=== PATIENT | female | born 1995 | race Caucasian/White ===

== ENCOUNTER 2022-04-18 22:05 | Inpatient (IN) | payer OTHER, SELFPAY ==
[2022-04-18] MEDS ORDERED: NA CHLORIDE 0.9% 1,000 ML ONE (22:56)
[2022-04-18] MEDS ORDERED: ONDANSETRON 4 MG/2 ML VIAL ONE (22:56)
[2022-04-18 23:17] LABS: Absolute Lymphocytes (CBC) 0.8 K/uL (0.7-4.9); Hematocrit 49.1 % (36.0-45.0); Lymphocytes % 5.5 % (15.3-44.8); MCV 88.5 fL (80-100); MPV 8.2 fL (7.6-11.3); RBC Red Blood Cell Count 5.56 M/uL (3.86-4.86)
[2022-04-18 23:20] LABS: Protime INR 1.14
[2022-04-18 23:53] LABS: ALT/SGPT 28 U/L (12-78); AST/SGOT 26 U/L (15-37); Albumin 4.9 g/dL (3.4-5.0); Alkaline Phosphatase 106 U/L (45-117); BUN Blood Urea Nitrogen 17 mg/dL (7-18); Bicarbonate 22 mmol/L (21-32); Bilirubin Direct 0.1 mg/dL (0-0.2); Bilirubin Total 0.5 mg/dL (0.2-1.0); Glomerular Filtration Rate 74 ml/min (=/>90); Glucose Level 138 mg/dL (74-106); Potassium 3.3 mmol/L (3.5-5.1); Protein, Total 9.7 g/dL (6.4-8.2); Sodium Level 138 mmol/L (136-145)
[2022-04-18] MEDS ORDERED: MORPHINE 2 MG/ML SYR ONE (23:55)
[2022-04-19] MEDS ORDERED: CLONIDINE 0.2 MG/PATCH TD ONE (00:04)
[2022-04-19 00:13] LABS: Blood Morphology Comment NOT SEEN (NOT SEEN); Platelet Estimate ADEQ
[2022-04-19] MEDS ORDERED: CEFTRIAXONE 1000 MG/VIAL ONE ×2 (01:27→08:41)
--- NOTE | 2022-04-19 01:37 | ER ---
Nurse's Notes [facility] Name: Renetta Kapoor Age: 26 yrs Sex: Female : 1995 Arrival Date: 04/18/2022 Time: 22:14 Bed 2 Private MD: Diagnosis: Vomiting-INTRACTABLE;Adverse effect of other narcotics;Opioid dependence with withdrawal;Elevated white blood cell count;Bandemia;Left sided colitis without complications;Constipation Presentation: 04/18 22:25 Chief complaint: EMS states: She has been trying to come off of Heroin for the last six bm7 days on her own. She has been taking Suboxone from an unknown source. Coronavirus screen: At this time, the client does not indicate any symptoms associated with coronavirus-19. Ebola Screen: No symptoms or risks identified at this time. Initial Sepsis Screen: Does the patient meet any 2 criteria? HR > 90 bpm. Does the patient have a suspected source of infection? No. Patient's initial sepsis screen is negative. Risk Assessment: Do you want to hurt yourself or someone else? Patient reports desire/thoughts of hurting themselves or someone else. Provider notified. Onset of symptoms is unknown. 22:25 Method Of Arrival: EMS: [facility] 7 22:25 Acuity: FADI 3 7 22:29 Care prior to arrival: Medication(s) given: zofran IM. bm7 Triage Assessment: 22:27 General: Appears distressed, uncomfortable, ill, slender, Behavior is restless. Pain: 7 Complains of pain in abdomen. EENT: No deficits noted. No signs and/or symptoms were reported regarding the EENT system. Neuro: No deficits noted. Cardiovascular: No deficits noted. Respiratory: No deficits noted. GI: Reports cramping, diarrhea, nausea, vomiting. : No deficits noted. No signs and/or symptoms were reported regarding the genitourinary system. Derm: No deficits noted. No signs and/or symptoms reported regarding the dermatologic system. Musculoskeletal: No deficits noted. No signs and/or symptoms reported regarding the musculoskeletal system. COMPLIANCE ATTORNEY: 22:27 LMP 03/26/2022 bm7 Historical: - Allergies: 22:27 No Known Allergies; bm7 - Home Meds: 22:27 None [Active]; bm7 - Immunization history:: Adult Immunizations up to date. - Social history:: Smoking status: Patient reports the use of cigarette tobacco products, denies chronic smoking, but will smoke occasionally, Patient uses IV drugs, heroin. - Family history:: not pertinent. Screenin:00 Abuse screen: Denies threats or abuse. Nutritional screening: No deficits noted. jb4 Tuberculosis screening: No symptoms or risk factors identified. Fall Risk None identified. Assessment: 23:00 General: Appears in no apparent distress. uncomfortable, Behavior is cooperative, jb4 anxious. Pain: Complains of pain in abdomen Pain does not radiate. Pain currently is 10 out of 10 on a pain scale. Quality of pain is described as crampy. Neuro: Level of Consciousness is awake, alert, obeys commands, Oriented to person, place, time, situation. Cardiovascular: Patient's skin is warm and dry. Respiratory: Airway is patent Respiratory effort is even, unlabored, Respiratory pattern is regular, symmetrical. GI: Abdomen is flat, non-distended, Pt is actively vomiting bile, Reports nausea, vomiting. Derm: Skin is intact, Skin is pink, warm \T\ dry. 04/19 00:00 Reassessment: Patient appears in no apparent distress at this time. Patient and/or jb4 family updated on plan of care and expected duration. Pain level reassessed. Patient is alert, oriented x 3, equal unlabored respirations, skin warm/dry/pink. 01:00 Reassessment: Patient appears in no apparent distress at this time. Patient and/or jb4 family updated on plan of care and expected duration. Pain level reassessed. Patient is alert, oriented x 3, equal unlabored respirations, skin warm/dry/pink. 02:00 Reassessment: Patient appears in no apparent distress at this time. Patient and/or jb4 family updated on plan of care and expected duration. Pain level reassessed. Patient is alert, oriented x 3, equal unlabored respirations, skin warm/dry/pink. Vital Signs: 04/18 22:25 BP 132 / 80; Pulse 104; Resp 20; Temp 98.0(TE); Pulse Ox 100% on R/A; Weight 45.36 kg bm7 (R); Height 5 ft. 0 in. (152.40 cm); Pain 10/10; 04/19 00:00 BP 144 / 78; Pulse 59; Resp 20; Pulse Ox 99% on R/A; jb4 01:30 BP 156 / 90; Pulse 77; Resp 20; Pulse Ox 97% ; jb4 04/18 22:25 Body Mass Index 19.53 (45.36 kg, 152.40 cm) bm7 ED Course: 04/18 22:14 Patient arrived in ED. bm7 22:16 Irineo Blanco MD is Attending Physician. edwina 22:27 Triage completed. bm7 22:27 Arm band placed on right wrist. bm7 22:45 Lauri Martinez, RN is Primary Nurse. jb4 23:00 Patient has correct armband on for positive identification. Placed in gown. Bed in low jb4 position. Call light in reach. Side rails up X 1. Client placed on continuous cardiac and pulse oximetry monitoring. NIBP monitoring applied. monitor car operator on. 23:00 Initial lab(s) drawn, by me, sent to lab. Inserted saline lock: 18 gauge in right jb4 antecubital area, using aseptic technique. Blood collected. 23:49 Chest Single View XRAY In Process Unspecified. EDMS 08 00:35 IV discontinued, intact, bleeding controlled, No redness/swelling at site. Pressure jb4 dressing applied. 00:35 Inserted saline lock: 22 gauge in right antecubital area, using aseptic technique. jb4 01:06 CT Abd/Pelvis - IV Contrast Only In Process Unspecified. EDMS 01:34 Humberto Rosales MD is Hospitalizing Provider. edwina 02:52 No provider procedures requiring assistance completed. jb4 07:07 Primary Nurse role handed off by Lauri Martinez, RN bp 07:07 Fausto Sampson, NIKIA is Primary Nurse. bp Administered Medications: 04/18 22:56 Drug: NS 0.9% 1000 ml Route: IV; Rate: 1000 bolus; Site: right antecubital; 04/19 02:56 Follow up: Response: No adverse reaction; IV Status: Completed infusion; IV Intake: jb4 1000ml 04/18 22:56 Drug: Zofran (Ondansetron) 4 mg Route: IVP; Site: right antecubital; 04/19 01:43 Follow up: Response: No adverse reaction jb4 04/18 23:30 Drug: Zofran (Ondansetron) 4 mg Route: IVP; Site: right antecubital; jb4 04/19 01:43 Follow up: Response: No adverse reaction jb4 04/18 23:50 Drug: morphine 2 mg Route: IVP; Infused Over: 4 mins; Site: right antecubital; jb4 04/19 01:43 Follow up: Response: No adverse reaction; Marked relief of symptoms jb4 01:16 Drug: cloNIDine Patch 0.2 mg/24 hr 1 patches {Note: applied to left upper arm.} Route: jb4 Transdermal; Site: affected area; 01:29 Drug: Rocephin (cefTRIAXone) 1 grams Route: IV; Rate: per protocol; Site: right jb4 antecubital; 01:32 Follow up: IV Status: Completed infusion jb4 01:45 Follow up: Response: No adverse reaction jb4 01:42 Drug: Phenergan (promethazine) 12.5 mg Route: IVP; Site: right antecubital; jb4 02:54 Follow up: Response: No adverse reaction; Marked relief of symptoms jb4 02:26 Drug: Flagyl (metroNIDAZOLE) 500 mg Volume: 100 ml; Route: IVPB; Rate: 200 ml/hr; jb4 Infused Over: 30 mins; Site: right antecubital; 02:56 Follow up: Response: No adverse reaction; IV Status: Completed infusion; IV Intake: jb4 100ml 03:10 Drug: Lactated Ringers Solution 1000 ml Route: IV; Rate: 125 ml/hr; Site: right jb4 antecubital; 03:11 Follow up: Response: No adverse reaction; IV Status: Infusion continued upon admission jb4 Medication: 02:52 VIS not applicable for this client. jb4 Intake: 02:56 IV: 100ml; Total: 100ml. jb4 02:56 IV: 1000ml; Total: 1100ml. jb4 Outcome: 01:27 Discharge ordered by . ewdina 01:36 Decision to Hospitalize by Provider. edwina 02:52 Admitted to ER Hold. Please see [facility] for further documentation. jb4 02:52 Condition: stable 02:52 Discharge instructions given to patient, Instructed on the need for admit, Demonstrated understanding of instructions. 17:00 Patient left the ED. bp Signatures: Dispatcher [employer] Sophie Farr RN RN kl Anderson, Corey, MD MD cha Bryson, James, RN RN jb4 Fausto Sampson RN RN bp Annabel Campuzano RN RN bm7 Corrections: (The following items were deleted from the chart) 04/18 22:28 22:27 PMHx: None; bm7 bm7
--- NOTE | 2022-04-19 01:37 | EDPHYS ---
Physician Documentation [facility] Name: Renetta Kapoor Age: 26 yrs Sex: Female : 1995 Arrival Date: 04/18/2022 Time: 22:14 Bed 2 Private MD: ED Physician Irineo Blanco HPI: 04/18 23:45 This 26 yrs old Female presents to ER via EMS with complaints of heroin edwina withdrawal. 23:45 The patient presents with abdominal pain in the upper abdomen, in the lower abdomen. edwina Onset: The symptoms/episode began/occurred just prior to arrival. The patient presents to the emergency department with nausea, vomiting, abdominal pain. Onset: The symptoms/episode began/occurred today. Possible causes: heroin withdrawal. The symptoms are aggravated by nothing. The symptoms are alleviated by nothing. took suboxone. The symptoms do not radiate. Associated signs and symptoms: The patient has no apparent associated signs or symptoms. [employer]: 22:27 LMP 03/26/2022 [facility] Historical: - Allergies: 22:27 No Known Allergies; 7 - Home Meds: 22:27 None [Active]; 7 - Immunization history:: Adult Immunizations up to date. - Social history:: Smoking status: Patient reports the use of cigarette tobacco products, denies chronic smoking, but will smoke occasionally, Patient uses IV drugs, heroin. - Family history:: not pertinent. ROS: 23:45 Constitutional: Negative for fever, chills, and weight loss, Eyes: Negative for injury, edwina pain, redness, and discharge, ENT: Negative for injury, pain, and discharge, Neck: Negative for injury, pain, and swelling, Cardiovascular: Negative for chest pain, palpitations, and edema, Respiratory: Negative for shortness of breath, cough, wheezing, and pleuritic chest pain, Back: Negative for injury and pain, : Negative for injury, bleeding, discharge, and swelling, MS/Extremity: Negative for injury and deformity, Skin: Negative for injury, rash, and discoloration, Neuro: Negative for headache, weakness, numbness, tingling, and seizure, Psych: Negative for depression, anxiety, suicide ideation, homicidal ideation, and hallucinations, Allergy/Immunology: Negative for hives, rash, and allergies, Endocrine: Negative for neck swelling, polydipsia, polyuria, polyphagia, and marked weight changes, Hematologic/Lymphatic: Negative for swollen nodes, abnormal bleeding, and unusual bruising. 23:45 Abdomen/GI: Positive for abdominal pain, nausea and vomiting, of the right upper quadrant, left upper quadrant, right lower quadrant and left lower quadrant. Exam: 23:45 Constitutional: This is a well developed, well nourished patient who is awake, alert, edwina and in no acute distress. Head/Face: Normocephalic, atraumatic. Eyes: Pupils equal round and reactive to light, extra-ocular motions intact. Lids and lashes normal. Conjunctiva and sclera are non-icteric and not injected. Cornea within normal limits. Periorbital areas with no swelling, redness, or edema. ENT: Nares patent. No nasal discharge, no septal abnormalities noted. Tympanic membranes are normal and external auditory canals are clear. Oropharynx with no redness, swelling, or masses, exudates, or evidence of obstruction, uvula midline. Mucous membranes moist. Neck: Trachea midline, no thyromegaly or masses palpated, and no cervical lymphadenopathy. Supple, full range of motion without nuchal rigidity, or vertebral point tenderness. No Meningismus. Chest/axilla: Normal chest wall appearance and motion. Nontender with no deformity. No lesions are appreciated. Cardiovascular: Regular rate and rhythm with a normal S1 and S2. No gallops, murmurs, or rubs. Normal PMI, no JVD. No pulse deficits. Respiratory: Lungs have equal breath sounds bilaterally, clear to auscultation and percussion. No rales, rhonchi or wheezes noted. No increased work of breathing, no retractions or nasal flaring. Back: No spinal tenderness. No costovertebral tenderness. Full range of motion. Skin: Warm, dry with normal turgor. Normal color with no rashes, no lesions, and no evidence of cellulitis. MS/ Extremity: Pulses equal, no cyanosis. Neurovascular intact. Full, normal range of motion. Neuro: Awake and alert, GCS 15, oriented to person, place, time, and situation. Cranial nerves II-XII grossly intact. Motor strength 5/5 in all extremities. Sensory grossly intact. Cerebellar exam normal. Normal gait. 23:45 Abdomen/GI: Inspection: abdomen appears normal, Bowel sounds: normal, Palpation: mild abdominal tenderness, in all quadrants, Liver: no appreciated palpable abnormalities, Hernia: not appreciated. 23:51 ECG was reviewed by the Attending Physician. [facility] Vital Signs: 22:25 BP 132 / 80; Pulse 104; Resp 20; Temp 98.0(TE); Pulse Ox 100% on R/A; Weight 45.36 kg bm7 (R); Height 5 ft. 0 in. (152.40 cm); Pain 10/10; 04/19 00:00 BP 144 / 78; Pulse 59; Resp 20; Pulse Ox 99% on R/A; jb4 01:30 BP 156 / 90; Pulse 77; Resp 20; Pulse Ox 97% ; jb4 04/18 22:25 Body Mass Index 19.53 (45.36 kg, 152.40 cm) bm7 MDM: 04/18 22:16 Patient medically screened. [facility] 23:52 Differential Diagnosis sepsis. Differential diagnosis: Cholelithiasis, diverticulitis, edwina non-specific abd pain. Data reviewed: vital signs, nurses notes, lab test result(s), EKG, radiologic studies, plain films. Data interpreted: drug room clerk: rate is 104 beats/min, rhythm is regular. Test interpretation: by ED physician or midlevel provider: ECG, plain radiologic studies. Counseling: I had a detailed discussion with the patient and/or guardian regarding: the historical points, exam findings, and any diagnostic results supporting the discharge/admit diagnosis, lab results, radiology results. 04/18 22:19 Order name: Acetaminophen; Complete Time: 01: [facility] 04/18 22:19 Order name: Basic Metabolic Panel; Complete Time: 01: [facility] 04/18 22:19 Order name: CBC with Diff; Complete Time: 01: [facility] 04/18 22:19 Order name: ETOH Level; Complete Time: 01: [facility] 04/18 22:19 Order name: Hepatic Function; Complete Time: 01: [facility] 04/18 22:19 Order name: PT-INR; Complete Time: 23: [facility] 04/18 22:19 Order name: Ptt, Activated; Complete Time: 23:31 [facility] 04/18 22:19 Order name: Salicylate; Complete Time: 01: [facility] 04/18 22:19 Order name: Urine Drug Screen; Complete Time: 03:53 [facility] 04/18 23:19 Order name: Manual Differential; Complete Time: 01:02 EDMS 04/19 01:32 Order name: Urine Culture [facility] 04/19 01:38 Order name: Test, Serum; Complete Time: 02:37 [facility] 04/19 01:39 Order name: SARS RAPID; Complete Time: 03:53 [facility] 04/19 02:10 Order name: Urine Dipstick-Ancillary; Complete Time: 02:37 [facility] 04/18 22:24 Order name: Chest Single View XRAY [facility] 04/18 23:41 Order name: CT Abd/Pelvis - IV Contrast Only [facility] 04/19 10:37 Order name: CBC with Automated Diff [facility] 04/19 10:49 Order name: Basic Metabolic Panel [facility] 04/19 11:43 Order name: CBC Smear Scan [facility] 04/19 15:37 Order name: CBC with Automated Diff [facility] 04/19 16:06 Order name: Manual Differential [facility] 04/18 22:19 Order name: EKG; Complete Time: 22:20 [facility] 04/18 22:19 Order name: EKG - Nurse/Tech; Complete Time: 23:07 [facility] 04/18 22:19 Order name: IV Saline Lock; Complete Time: 23:35 [facility] 04/18 22:19 Order name: Labs collected and sent; Complete Time: 23:35 [facility] 04/18 22:19 Order name: Suicide Screening ([place]); Complete Time: 23:35 [facility] 04/18 22:19 Order name: Urine Dipstick-Ancillary (obtain specimen); Complete Time: 02:21 [facility] 04/18 22:24 Order name: Urine Test (obtain specimen); Complete Time: 02:21 [facility] 04/19 01:38 Order name: Misc. Order: GET UA PLEASE; Complete Time: 02:21 [facility] EC:51 Rate is 72 beats/min. Rhythm is regular. QRS [place] is Normal. [place] interval is normal. QRS edwina interval is normal. QT interval is normal. No Q waves. T waves are Normal. No ST changes noted. Clinical impression: NSR w/ Non-specific ST/T Changes and No evidence of ischemia. Interpreted by me. Reviewed by me. Administered Medications: 22:56 Drug: NS 0.9% 1000 ml Route: IV; Rate: 1000 bolus; Site: right antecubital; 04/19 02:56 Follow up: Response: No adverse reaction; IV Status: Completed infusion; IV Intake: jb4 1000ml 04/18 22:56 Drug: Zofran (Ondansetron) 4 mg Route: IVP; Site: right antecubital; 04/19 01:43 Follow up: Response: No adverse reaction [facility] 04/18 23:30 Drug: Zofran (Ondansetron) 4 mg Route: IVP; Site: right antecubital; [facility] 04/19 01:43 Follow up: Response: No adverse reaction [facility] 04/18 23:50 Drug: morphine 2 mg Route: IVP; Infused Over: 4 mins; Site: right antecubital; [facility] 04/19 01:43 Follow up: Response: No adverse reaction; Marked relief of symptoms 4 01:16 Drug: cloNIDine Patch 0.2 mg/24 hr 1 patches {Note: applied to left upper arm.} Route: jb4 Transdermal; Site: affected area; 01:29 Drug: Rocephin (cefTRIAXone) 1 grams Route: IV; Rate: per protocol; Site: right [facility] antecubital; 01:32 Follow up: IV Status: Completed infusion jb4 01:45 Follow up: Response: No adverse reaction jb4 01:42 Drug: Phenergan (promethazine) 12.5 mg Route: IVP; Site: right antecubital; 4 02:54 Follow up: Response: No adverse reaction; Marked relief of symptoms jb4 02:26 Drug: Flagyl (metroNIDAZOLE) 500 mg Volume: 100 ml; Route: IVPB; Rate: 200 ml/hr; jb4 Infused Over: 30 mins; Site: right antecubital; 02:56 Follow up: Response: No adverse reaction; IV Status: Completed infusion; IV Intake: jb4 100ml 03:10 Drug: Lactated Ringers Solution 1000 ml Route: IV; Rate: 125 ml/hr; Site: right 4 antecubital; 03:11 Follow up: Response: No adverse reaction; IV Status: Infusion continued upon admission jb4 Disposition Summary: 04/19/22 01:36 Hospitalization Ordered Hospitalization Status: Inpatient Admission edwina Provider: Humberto Rosales cha Condition: Fair(04/19/22 01:36) edwina Problem: new(04/19/22 01:36) edwina Symptoms: have improved(04/19/22 01:36) edwina Bed/Room Type: Standard edwina Location: [facility] ER HOLD(04/19/22 01:44) eb1 Room Assignment: ERHOLD-(04/19/22 01:44) eb1 Diagnosis - Adverse effect of other narcotics(04/19/22 01:36) edwina - Opioid dependence with withdrawal(04/19/22 01:36) edwina - Elevated white blood cell count(04/19/22 01:36) edwina - Bandemia(04/19/22 01:36) edwina - Vomiting - INTRACTABLE(04/19/22 01:44) edwina - Left sided colitis without complications edwina - Constipation edwina Forms: - Medication Reconciliation Form edwina - SBAR form edwina Signatures: Dispatcher [employer] EDMS Sophie Romo RN Irineo Ellis MD MD cha Bryson, James, RN RN jb4 Vero Gil RN RN eb1 Annabel Campuzano, NIKIA RN bm7 Love Garces, PA PA sb3 Corrections: (The following items were deleted from the chart) 04/18 22:28 22:27 PMHx: None; bm7 bm7 04/19 01:28 01:27 Home edwina edwina : 01:27 new edwina edwina : 01:27 have improved edwina edwina : 01:27 Stable edwina edwina : 01:27 Adverse effect of other narcotics edwina edwina : 01:27 Opioid dependence with withdrawal edwina edwina : 01:27 Vomiting edwina edwina : 01:27 Dental caries, unspecified edwina edwina : 01:27 Dental alveolar anomalies edwina edwina : 01:27 Elevated white blood cell count edwina edwina : 01:27 Bandemia edwina edwina : 01:27 Hypokalemia edwina edwina : 01:27 Abdominal pain, Generalized edwina edwina :44 01:36 Telemetry/MedSurg (Inpatient) edwina eb1 01:44 01:36 edwina eb1 01:44 01:36 Vomiting edwina edwina
[2022-04-19] MEDS ORDERED: PROMETHAZINE INJ 25 MG/ML AMP ONE ×2 (01:43→13:57)
[2022-04-19] MEDS ORDERED: Ringers Lactate 1,000 ML IV ONE (01:51)
[2022-04-19] MEDS ORDERED: METRONIDAZOLE 500mg IVPB 500 MG/100 ML BAG IV ONE ×2 (01:51→08:42)
[2022-04-19 02:10] LABS: Urine Blood Trace-intact (Negative); Urine Glucose Negative (Negative); Urine Protein Negative (Negative); Urine Specific Gravity 1.015 (1.005-1.030); Urine pH 7.5 (5.0-7.0)
[2022-04-19 02:51] LABS: Barbiturates NEGATIVE (NEGATIVE); Benzodiazepines POSITIVE (NEGATIVE); Cocaine NEGATIVE (NEGATIVE); METHAMPHETAM NEGATIVE (NEGATIVE); Methadone NEGATIVE (NEGATIVE); Opiates POSITIVE (NEGATIVE); Phencyclidine NEGATIVE (NEGATIVE); THC Cannibis POSITIVE (NEGATIVE)
--- NOTE | 2022-04-19 02:53 | P.HP ---
Certification for Inpatient Patient admitted to: Inpatient With expected LOS: <2 Midnights Patient will require the following post-hospital care: None Practitioner: I am a practitioner with admitting privileges, knowledge of patient current condition, hospital course, and medical plan of care. Services: Services provided to patient in accordance with Admission requirements found in Title 42 Section 412.3 of the Code of Federal Regulations Patient History Date of Service: 04/19/22 Reason for admission: Intractable Vomiting History of Present Illness: Patient is a 26-year-old female who presented to the ED via EMS with intractable vomiting. Patient reports that she is an IV heroin user but last used 6 days ago. She has been taking suboxone from an unknown source. Given IM zofran en route. She was audibly retching upon arrival. Patient was given 2 additional doses of zofran, phenegran, and clonidine patch in ED but continued to vomit. Her labs are significant for potassium 3.3, WBC 14.3, segs 88, bands 2. CT abdomen pelvis showed proctocolitis of infectious or inflammatory etiology. She was started on Rocephin and Flagyl in the ED and given 2 L of fluid. She is alert and oriented x 4 during my assessment and answering questions appropriately. ED provider wishes admit patient for further evaluation and treatment of intractable vomiting. Allergies amoxicillin [Amoxicillin] Allergy (Verified 05/26/13 17:59) Itching/Hives/Rash Home medications list reviewed: Yes Home Medications: NK [No Home Meds] 04/19/22 - Past Medical/Surgical History Diabetic: No -: depression Past Surgical History: Patient denies surgical history Psychosocial/ Personal History: Patient lives in [facility]. - Family History Family History: Reviewed- Non-Contributory - Social History Smoking Status: Current some day smoker Alcohol use: No CD- Drugs: Yes Caffeine use: Yes Place of Residence: Home Review of Systems Gastrointestinal: Nausea, Vomiting, Abdominal Pain, Diarrhea Physical Examination - Physical Exam General: Alert, In no apparent distress HEENT: Atraumatic, PERRLA, EOMI, Sclerae nonicteric Neck: Supple, 2+ carotid pulse no bruit, No LAD, Without JVD or thyroid abnormality Respiratory: Clear to auscultation bilaterally, Normal air movement Cardiovascular: Regular rate/rhythm, Normal S1 S2 Gastrointestinal: Normal bowel sounds, No tenderness Musculoskeletal: No tenderness Integumentary: No rashes Neurological: Normal speech, Normal strength at 5/5 x4 extr, Normal tone, Normal affect - Studies Laboratory Data (last 24 hrs) 04/18/22 22:50: PT 12.6 H, INR 1.14, APTT 28.6 04/18/22 22:50: WBC 14.30 H, Hgb 16.6 H, Hct 49.1 H, Plt Count 337 04/18/22 22:50: Sodium 138, Potassium 3.3 L, BUN 17, Creatinine 1.05, Glucose 138 H, Total Bilirubin 0.5, AST 26, ALT 28, Alkaline Phosphatase 106 Assessment and Plan - Problems (Diagnosis) (1) Intractable vomiting Current Visit: Yes Status: Acute (2) Heroin withdrawal Current Visit: Yes Status: Acute (3) Proctocolitis Current Visit: Yes Status: Acute (4) Leukocytosis Current Visit: Yes Status: Acute Qualifiers: Leukocytosis type: bandemia Qualified Code(s): D72.825 - Bandemia (5) Hypokalemia Current Visit: Yes Status: Acute - Plan -Continue supportive measures with IV fluids and antiemetics -IV antibiotics for proctocolitis and leukocytosis -senior manager creative services consult in place. Patient says she would consider going to rehab. -Monitor and replete electrolytes per protocol -Reconcile and continue home medications -Lovenox for VTE ppx -Full code Discharge Plan: Home Plan to discharge in: 48 Hours - Advance Directives Does patient have a Living Will: No Does patient have a Durable POA for Healthcare: No - Code Status/Comfort Care Code Status Assessed: Yes (Full) Critical Care: No Time Spent Managing Pts Care (In Minutes): 50
[2022-04-19 03:15] LABS: SARS-CoV-2 Antigen Rapid Res Negative (Negative)
[2022-04-19] MEDS ORDERED: ACETAMINOPHEN 500 MG TAB PO PRN (03:18)
[2022-04-19 03:38] VITALS: BMI 19.5
[2022-04-19] MEDS: Ringers Lactate 1,000 ML IV SCH ×2 (03:44→12:00)
[2022-04-19] MEDS ORDERED: PROMETHAZINE INJ 25 MG/ML AMP IV PRN (06:00)
[2022-04-19] MEDS ORDERED: POTASSIUM 25 MEQ EFFERV TAB PO ONE (07:00)
[2022-04-19] MEDS ORDERED: ENOXAPARIN 40 MG/0.4 ML SQ ONE (08:42)
[2022-04-19] MEDS ORDERED: POTASSIUM 25 MEQ EFFERV TAB ONE (08:42)
[2022-04-19] MEDS ORDERED: ENOXAPARIN 40 MG/0.4 ML SQ SCH (09:00)
[2022-04-19] MEDS ORDERED: METRONIDAZOLE 500mg IVPB 500 MG/100 ML BAG IV SCH (09:00)
[2022-04-19] MEDS ORDERED: CEFTRIAXONE 1,000 MG in NA CHLORIDE 0.9% 50 ML IVPB SCH (09:00)
[2022-04-19] MEDS: clonazePAM 0.5 MG TAB PO SCH ×2 (09:00→14:00)
[2022-04-19] MEDS ORDERED: clonazePAM 0.5 MG TAB ONE ×2 (09:34→13:58)
[2022-04-19 10:34] LABS: Absolute Lymphocytes (CBC) 0.8 K/uL (0.7-4.9); Hematocrit 42.3 % (36.0-45.0); Lymphocytes % 4.1 % (15.3-44.8); MCV 88.2 fL (80-100); MPV 7.8 fL (7.6-11.3)
[2022-04-19 10:48] LABS: Potassium 3.6 mmol/L (3.5-5.1)
[2022-04-19 11:42] LABS: Blood Morphology Comment NOT SEEN (NOT SEEN); White Blood Cell Scan OK (OK)
[2022-04-19 11:43] LABS: Platelet Estimate ADEQ
[2022-04-19] MEDS ORDERED: NA CHLORIDE 0.9% 1,000 ML IV ONE (11:57)
--- NOTE | 2022-04-19 11:59 | P.PN ---
Subjective Date of Service: 04/19/22 Subjective: No new changes, No C/O voiced, Improving (Patient is feeling better. We will repeat labs later today and if she is doing well plan to discharge her home.) Review of Systems 10-point ROS is otherwise unremarkable Physical Examination - Vital Signs Temperature: 98.4 F Blood Pressure: 123/81 Pulse: 86 Respirations: 20 Pulse Ox (%): 98 - Physical Exam General: Alert, In no apparent distress HEENT: Atraumatic, PERRLA, EOMI Neck: Supple, JVD not distended Respiratory: Clear to auscultation bilaterally, Normal air movement Cardiovascular: Regular rate/rhythm, Normal S1 S2 Gastrointestinal: Normal bowel sounds, No tenderness Musculoskeletal: No tenderness Integumentary: No rashes Neurological: Normal speech, Normal tone, Normal affect Lymphatics: No axilla or inguinal lymphadenopathy - Studies Laboratory Data (last 24 hrs) 04/18/22 22:50: PT 12.6 H, INR 1.14, APTT 28.6 04/18/22 22:50: WBC 14.30 H, Hgb 16.6 H, Hct 49.1 H, Plt Count 337 04/18/22 22:50: Sodium 138, Potassium 3.3 L, BUN 17, Creatinine 1.05, Glucose 138 H, Total Bilirubin 0.5, AST 26, ALT 28, Alkaline Phosphatase 106 Medications List Reviewed: Yes Assessment & Plan - Problems (Diagnosis) (1) Withdrawal from recreational drug Current Visit: Yes Status: Acute (2) Intractable vomiting Current Visit: Yes Status: Acute (3) Leukocytosis Current Visit: Yes Status: Acute Qualifiers: Leukocytosis type: bandemia Qualified Code(s): D72.825 - Bandemia (4) Proctocolitis Current Visit: Yes Status: Acute - Plan -IV antibiotics -IV fluids -Repeat labs -Diet as tolerated -Anxiolytics -Rehab information Discharge Plan: Home Plan to discharge in: 24 Hours - Advance Directives Does patient have a Living Will: No Does patient have a Durable POA for Healthcare: No - Code Status/Comfort Care Code Status Assessed: Yes Code Status: Full Code Critical Care: No Time Spent Managing PTS Care (In Minutes): 35
--- NOTE | 2022-04-19 13:12 | RAD REPORT ---
EXAM DESCRIPTION: RAD - Chest Single View - 04/18/2022 11:48 pm CLINICAL HISTORY: COUGH COMPARISON: None. FINDINGS: Single frontal radiograph view of the chest. Cardiomediastinal silhouette: Normal size and contour. Lungs: No consolidation, pneumothorax, or pleural effusion. Bones: No acute osseous abnormality. Leads overlie the chest. Upper abdomen: No abnormality identified. IMPRESSION: 1. No acute pulmonary process identified. Electronically signed by: Demetrius Castro 04/18/2022 11:55 PM CDT Due to temporary technical issues with the PACS/Fluency reporting system, reports are being signed by the in house radiologists without review as a courtesy to insure prompt reporting. The interpreting radiologist is fully responsible for the content of the report.
[2022-04-19] MEDS ORDERED: NA CHLORIDE 0.9% 1,000 ML ONE (13:37)
--- NOTE | 2022-04-19 14:31 | RAD REPORT ---
EXAM DESCRIPTION: CT - Abdomen Pelvis W Contrast - 04/19/2022 1:29 am CLINICAL HISTORY: Abdominal pain, acute, nonlocalized COMPARISON: None Available. TECHNIQUE: CT of the abdomen and pelvis performed following IV administration of iodinated contras t. This exam was performed according to our departmental dose-optimization program, which includes au tomated exposure control, adjustment of the mA and/or kV according to patient size and/or use of iter ative reconstruction technique. FINDINGS: Lung Bases: The visualized lung bases are clear. Bones: No destructive bone lesions identified. Abdomen: Liver: The liver has normal size and density. No intrahepatic biliary dilatation. Gallbladder: No calcified gallstones. Spleen, Pancreas, and Adrenal Glands: The spleen, pancreas, and adrenal glands are unremarkable. Kidneys: No hydronephrosis or obstructing calculus. Vasculature: The aorta and IVC have normal caliber and position. The portal vein is patent. The pro ximal visceral and renal arteries are patent. Stomach: The stomach and duodenum have normal course. Other: No free intraperitoneal air. Small amount free fluid. Pelvis: Bladder: Urinary bladder is unremarkable. Bowel: No dilated loops of large or small bowel. Low thickening and adjacent inflammatory change of the rectosigmoid colon. There is also mild wall thickening of the descending and transverse colon. M oderate amount of stool. Appendix: Not well individually identified. Pelvis: Uterus is not enlarged. IMPRESSION: 1. Findings compatible with proctocolitis. This may be of infectious or inflammatory e tiology. 2. Small amount of free fluid. Electronically signed by: Demetrius Castro 04/19/2022 1:19 AM CDT Due to temporary technical issues with the PACS/Fluency reporting system, reports are being signed by the in house radiologists without review as a courtesy to insure prompt reporting. The interpreting radiologist is fully responsible for the content of the report.
--- NOTE | 2022-04-19 15:10 | EKG ---
Test Date: 2022-04-18 Test Time: 22:57:17 Global Risk Management Director: ESTEBAN MEASUREMENT RESULTS: Intervals: Rate: 72 PA: 174 QRSD: 90 QT: 438 QTc: 479 [place]: P: 9 PA: 174 QRS: 73 T: 65 INTERPRETIVE STATEMENTS: Sinus rhythm with marked sinus arrhythmia Otherwise normal ECG No previous ECG available for comparison Electronically Signed On 04-19-22 15:09:18 CDT by Hank Pardo
[2022-04-19 15:34] LABS: Absolute Lymphocytes (CBC) 0.8 K/uL (0.7-4.9); Hematocrit 42.8 % (36.0-45.0); MCV 87.2 fL (80-100); MPV 7.3 fL (7.6-11.3)
[2022-04-19 16:05] LABS: Toxic Granulation 1+
[2022-04-19 16:06] LABS: Blood Morphology Comment NOT SEEN (NOT SEEN); Platelet Estimate ADEQ
[2022-04-19 18:06] VITALS: TEMP 98
[2022-04-19 18:21] VITALS: BP 156/90; O2SAT 97
== END 2022-04-19 17:01 | disposition home or self-care (01) | DRG 897 ==
LOC: ER 22:05 → ERHOLD 04-19 03:04
PROVIDERS: ADMIT Hospitalist; ATTEND Hospitalist
DX: F11.23 Opioid dependence with withdrawal (principal); D72.825 Bandemia; E87.6 Hypokalemia; K59.00 Constipation, unspecified; K52.9 Noninfective gastroenteritis and colitis, unspecified; F17.210 Nicotine dependence, cigarettes, uncomplicated; R11.2 Nausea with vomiting, unspecified; Z88.1 Allergy status to other antibiotic agents; Z20.822 Contact with and (suspected) exposure to COVID-19
CPT/HCPCS: 36415; 71045; 74177; 80048; 80076; 80307; 80320; 80329; 81003; 84703; 85025; 85610; 85730; 87086; 87088; 87811; 93005; 96361; 96365; 96375; 99285; J1650; J2270; J2405; J2550; J7030; J7120; Q9967

== ENCOUNTER 2022-07-19 23:27 | Emergency (ER) | payer SELFPAY ==
[2022-07-19] MEDS ORDERED: FAMOTIDINE 20 MG/2 ML VIAL IV ONE (23:41)
[2022-07-19] MEDS ORDERED: ONDANSETRON 4 MG/2 ML VIAL ONE (23:41)
[2022-07-19] MEDS ORDERED: NA CHLORIDE 0.9% 1,000 ML ONE (23:41)
[2022-07-20 00:05] LABS: Urine Blood 2+ (Negative); Urine Glucose Negative (Negative); Urine Protein 2+ (Negative); Urine Specific Gravity >=1.030 (1.005-1.030)
[2022-07-20 00:28] LABS: Urine Specific Gravity/Preg >1.030 (1.005-1.030)
[2022-07-20 00:30] LABS: Absolute Lymphocytes (CBC) 0.8 K/uL (0.7-4.9); MPV 7.9 fL (7.6-11.3); RBC Red Blood Cell Count 5.28 M/uL (3.86-4.86)
[2022-07-20 00:37] LABS: Specific Gravity > 1.030 (1.005-1.030); Urine Bacteria <20 /HPF (<20); Urine Bilirubin NEGATIVE (Negative); Urine Blood 2+ (Negative); Urine Clarity Turbid (Clear); Urine Color Yellow (Yellow); Urine Glucose NEGATIVE (Negative); Urine Mucus 3+ /HPF (None Seen); Urine Protein 1+ (Negative); Urine Urobilinogen 1+ (Normal)
[2022-07-20 00:45] LABS: Albumin 4.9 g/dL (3.4-5.0); Potassium 3.7 mmol/L (3.5-5.1)
[2022-07-20 01:22] LABS: SARS-COV-2 RT PCR NEGATIVE (NEGATIVE)
[2022-07-20] MEDS ORDERED: NA CHLORIDE 0.9% 1,000 ML ONE (01:35)
[2022-07-20] MEDS ORDERED: PROMETHAZINE INJ 25 MG/ML AMP ONE (02:20)
--- NOTE | 2022-07-20 03:38 | EDPHYS ---
Physician Documentation [facility] Name: Renetta Kapoor Age: 27 yrs Sex: Female : 1995 Arrival Date: 07/19/2022 Time: 23:27 Bed 11 Private MD: ED Physician Mark Dickerson HPI: 07/20 00:02 This 27 yrs old Female presents to ER via EMS with complaints of rn Nausea/Vomiting/Diarrhea. 00:02 The patient presents to the emergency department with nausea, vomiting, diarrhea, rn abdominal pain. Onset: The symptoms/episode began/occurred 2 day(s) ago. Possible causes: withdrawal. The symptoms are aggravated by nothing. The symptoms are alleviated by nothing. Associated signs and symptoms: Pertinent positives: abdominal pain, diarrhea, nausea, vomiting, Pertinent negatives: fever, GI bleeding. Severity of symptoms: At their worst the symptoms were moderate in the emergency department the symptoms are unchanged. The patient has experienced similar episodes in the past. The patient has not recently seen a physician. Pt reports at rehab for heroin addiction, feels like she is withdrawing, having abd cramping/vomiting/diarrhea. Has had similar symptoms in past with withdrawal but worse today, and told by rehab needs to take her suboxone or get discharged. [place] worse with Suboxone and couldn't keep it down so came here for evaluation. . Historical: - Allergies: 07/19 23:29 Amoxicillin; tw5 - Home Meds: 23:29 suboxone [Active]; tw5 - PMHx: 23:29 substance abuse; tw5 - PSHx: 23:29 None; tw5 - Immunization history:: Flu vaccine is not up to date. - Social history:: Smoking status: Patient reports the use of cigarette tobacco products, smokes one-half pack cigarettes per day. - Family history:: not pertinent. - Hospitalizations: : No recent hospitalization is reported. ROS: 07/20 00:02 Constitutional: Negative for fever, chills, and weight loss, Eyes: Negative for injury, rn pain, redness, and discharge, Neck: Negative for injury, pain, and swelling, Cardiovascular: Negative for chest pain, palpitations, and edema, Respiratory: Negative for shortness of breath, cough, wheezing, and pleuritic chest pain, Abdomen/GI: + abd pain/nausea/vomiting/diarrhea Back: Negative for injury and pain, MS/Extremity: Negative for injury and deformity, Skin: Negative for injury, rash, and discoloration, Neuro: Negative for headache, weakness, numbness, tingling, and seizure. Exam: 00:02 Constitutional: This is a well developed, well nourished patient who is awake, alert, rn and in no acute distress. Head/Face: Normocephalic, atraumatic. Eyes: Periorbital areas with no swelling, redness, or edema. ENT: dry MM Cardiovascular: Regular rate and rhythm. No pulse deficits. Respiratory: No increased work of breathing, no retractions or nasal flaring. Abdomen/GI: Soft, + mild mid abd tenderness, no mass or distension Skin: Warm, dry MS/ Extremity: Pulses equal, no cyanosis. Neuro: Awake and alert, GCS 15, oriented to person, place, time, and situation. Cranial nerves II-XII grossly intact. Motor strength 5/5 in all extremities. Sensory grossly intact. Cerebellar exam normal. Normal gait. Vital Signs: 07/19 23:28 BP 150 / 88; Pulse 94; Resp 18; Temp 97.1; Pulse Ox 98% on R/A; Weight 40.82 kg; Height tw5 4 ft. 11 in. (149.86 cm); Pain 10; 07/20 01:44 BP 127 / 58; Pulse 95; Resp 18; Pulse Ox 100% on R/A; tw5 07/19 23:28 Body Mass Index 18.18 (40.82 kg, 149.86 cm) tw5 MDM: 07/19 23:27 Patient medically screened. rn 07/20 03:36 Differential diagnosis: Nonspecific abd pain, pancreatitis, appendicitis, rn diverticulitis, viral gastroenteritis, gastroenteritis. Data reviewed: vital signs, nurses notes, lab test result(s), radiologic studies, CT scan, and as a result, I will discharge patient. Counseling: I had a detailed discussion with the patient and/or guardian regarding: the historical points, exam findings, and any diagnostic results supporting the discharge/admit diagnosis, lab results, radiology results, the need for outpatient follow up, to return to the emergency department if symptoms worsen or persist or if there are any questions or concerns that arise at home. Response to treatment: the patient's symptoms have markedly improved after treatment, and as a result, I will discharge patient. Special discussion: Based on the patient's Hx, exam, and Dx evaluation, there is no indication for emergent surgery or inpatient Tx. It is understood by the patient/guardian that if the Sx's persist or worsen they need to return immediately for re-evaluation. I discussed with the patient/guardian in detail that at this point there is no indication for admission to the hospital. It is understood, however, that if the symptoms persist or worsen the patient needs to return immediately for re-evaluation. 07/19 23:28 Order name: CBC with Diff; Complete Time: : rn 07/19 23: Order name: CMP; Complete Time: rn 07/19 23: Order name: Lipase; Complete Time: rn 07/19 23: Order name: COVID-19/FLU A+B; Complete Time: rn 07/20 00:04 Order name: UA; Complete Time: tw 07/20 00:06 Order name: Urine Dipstick-Ancillary; Complete Time: EDNM 07/20 00:16 Order name: Urine --Ancillary (enter results); Complete Time: 07/20 01:12 Order name: Abdomen EDNM 07/19 23:28 Order name: IV Saline Lock; Complete Time: 23:57 rn 07/19 23:28 Order name: Labs collected and sent; Complete Time: 23:57 rn 07/19 23:28 Order name: Urine Dipstick-Ancillary (obtain specimen); Complete Time: 23:57 rn 07/19 23:28 Order name: Urine Test (obtain specimen); Complete Time: 23:57 rn Administered Medications: 00:03 Drug: NS 0.9% 1000 ml Route: IV; Rate: 1 bolus; Site: left antecubital; tw5 03:48 Follow up: Response: No adverse reaction; IV Status: Completed infusion; IV Intake: tw5 500ml 00:03 Drug: Pepcid (famotidine) 20 mg Route: IVP; Site: left antecubital; tw5 03:35 Follow up: Response: No adverse reaction tw5 00:03 Drug: Zofran (Ondansetron) 4 mg Route: IVP; Site: left antecubital; tw5 03:35 Follow up: Response: No adverse reaction; Nausea is decreased 01:44 Drug: NS 0.9% 1000 ml Route: IV; Rate: 1000 ml; Site: left antecubital; 03:35 Follow up: Response: No adverse reaction; IV Status: Completed infusion; IV Intake: 1000ml 02:37 Drug: Phenergan (promethazine) 12.5 mg Route: IVP; Site: right hand; 03:34 Follow up: Response: No adverse reaction; Nausea is decreased Disposition Summary: 07/20/22 03:38 Discharge Ordered Location: Home rn Problem: new rn Symptoms: have improved rn Condition: Stable rn Diagnosis - Opioid dependence with withdrawal rn - Vomiting, unspecified rn - Diarrhea, unspecified rn Followup: rn - With: Private Physician - When: As needed - Reason: Recheck today's complaints, Re-evaluation by your physician Discharge Instructions: - Discharge Summary Sheet rn - Opioid Withdrawal rn - Opioid Withdrawal Treatment rn Forms: - Medication Reconciliation Form rn - Thank You Letter rn - Antibiotic foundry patternmaker - Prescription Opioid Use rn Signatures: Dispatcher [employer] EDMS Mark Dickerson MD MD rn Violetta Moses Corrections: (The following items were deleted from the chart) 07/19 23:30 23:29 PMHx: None; 07/20 00:17 00:06 UA MICROSCOPIC+U.LAB.BRZ ordered. EDMS EDMS 01:12 07/19 23:29 Abdomen Pelvis W Con+CT.RAD.BRZ ordered. EDMS EDMS
--- NOTE | 2022-07-20 03:38 | ER ---
Nurse's Notes [facility] Name: Renetta Kapoor Age: 27 yrs Sex: Female : 1995 Arrival Date: 07/19/2022 Time: 23:27 Bed 11 Private MD: Diagnosis: Opioid dependence with withdrawal;Vomiting, unspecified;Diarrhea, unspecified Presentation: 07/19 23:28 Chief complaint: EMS states: "She has been going through detox since Saturday. She states tw5 that she has been having nausea, vomiting and diarrhea since and she just cannot take it anymore.". Coronavirus screen: Vaccine status: Patient reports receiving the 2nd dose of the covid vaccine. [employer]. Ebola Screen: Patient negative for fever greater than or equal to 101.5 degrees Fahrenheit, and additional compatible Ebola Virus Disease symptoms Patient denies exposure to infectious person. Patient denies travel to an Ebola-affected area in the 21 days before illness onset. Initial Sepsis Screen: Does the patient meet any 2 criteria? HR > 90 bpm. Does the patient have a suspected source of infection? Yes: Acute abdominal pain. Risk Assessment: Do you want to hurt yourself or someone else? Patient reports no desire to harm self or others. Onset of symptoms is unknown. 23:28 Method Of Arrival: EMS: [facility] tw5 23:28 Acuity: FADI 3 tw5 Triage Assessment: 23:29 General: Appears uncomfortable, slender, Behavior is calm, cooperative, appropriate for tw5 age. Pain: Complains of pain in abdomen Pain currently is 7 out of 10 on a pain scale. GI: Reports diarrhea, nausea, vomiting. Historical: - Allergies: 23:29 Amoxicillin; tw5 - Home Meds: 23:29 suboxone [Active]; tw5 - PMHx: 23:29 substance abuse; tw - PSHx: 23:29 None; tw5 - Immunization history:: Flu vaccine is not up to date. - Social history:: Smoking status: Patient reports the use of cigarette tobacco products, smokes one-half pack cigarettes per day. - Family history:: not pertinent. - Hospitalizations: : No recent hospitalization is reported. Screenin/25 00:06 Abuse screen: Denies threats or abuse. Denies injuries from another. Nutritional tw5 screening: Has had N/V for 3 or more days. Tuberculosis screening: No symptoms or risk factors identified. 01:44 Fall Risk IV access (20 points). tw5 Assessment: 00:03 General: "This just feels like I am detoxing. This isn't my first rodeo, I just tw5 couldn't take it anymore and I need just a little extra help.". GI: Abdomen is flat, non-distended. 00:06 Neuro: Level of Consciousness is awake, alert, obeys commands, Oriented to person, tw5 place, time, situation. 03:34 Reassessment: Patient states feeling better. Patient states symptoms have improved. tw5 Vital Signs: 07/19 23:28 BP 150 / 88; Pulse 94; Resp 18; Temp 97.1; Pulse Ox 98% on R/A; Weight 40.82 kg; Height tw5 4 ft. 11 in. (149.86 cm); Pain 7/10; 07/20 01:44 BP 127 / 58; Pulse 95; Resp 18; Pulse Ox 100% on R/A; tw5 07/19 23:28 Body Mass Index 18.18 (40.82 kg, 149.86 cm) tw5 ED Course: 07/19 23:27 Patient arrived in ED. tw5 23:27 Mark Dickerson MD is Attending Physician. rn 23:28 Violetta Moses is Primary Nurse. tw5 23:29 Triage completed. tw5 23:29 Arm band placed on Patient placed in an exam room. tw5 23:31 Urine collected: clean catch specimen, cloudy. tw5 23:59 Initial lab(s) drawn, by me, sent to lab. Inserted saline lock: 24 gauge in left mb4 antecubital area, using aseptic technique. Blood collected. Missed attempt(s): 22 gauge in right antecubital area. 24 gauge in right hand. Bleeding controlled, band aid applied, catheter tip intact. 07/20 00:03 COVID-19/FLU A+B Sent. tw5 00:03 CBC with Diff Sent. tw5 00:03 CMP Sent. tw5 00:03 Lipase Sent. tw5 00:05 Patient has correct armband on for positive identification. Placed in gown. Bed in low tw5 position. 00:06 Door closed. Noise minimized. Moved to private room. Warm blanket given. Verbal tw5 reassurance given. 00:06 Urine Culture Sent. tw5 01:26 Abdomen In Process Unspecified. EDMS 01:44 Pulse ox on. NIBP on. tw5 01:44 Diet: Patient given snack. Patient given juice. tw5 01:44 No provider procedures requiring assistance completed. tw5 02:37 Inserted saline lock: 24 gauge in right hand, using aseptic technique. tw5 03:48 IV discontinued, intact, bleeding controlled, No redness/swelling at site. Pressure tw5 dressing applied, x2. Administered Medications: 00:03 Drug: NS 0.9% 1000 ml Route: IV; Rate: 1 bolus; Site: left antecubital; tw5 03:48 Follow up: Response: No adverse reaction; IV Status: Completed infusion; IV Intake: tw5 500ml 00:03 Drug: Pepcid (famotidine) 20 mg Route: IVP; Site: left antecubital; tw5 03:35 Follow up: Response: No adverse reaction tw5 00:03 Drug: Zofran (Ondansetron) 4 mg Route: IVP; Site: left antecubital; tw5 03:35 Follow up: Response: No adverse reaction; Nausea is decreased tw5 01:44 Drug: NS 0.9% 1000 ml Route: IV; Rate: 1000 ml; Site: left antecubital; tw5 03:35 Follow up: Response: No adverse reaction; IV Status: Completed infusion; IV Intake: tw5 1000ml 02:37 Drug: Phenergan (promethazine) 12.5 mg Route: IVP; Site: right hand; tw5 03:34 Follow up: Response: No adverse reaction; Nausea is decreased tw5 Medication: 00:04 VIS not applicable for this client. tw5 Intake: 03:35 IV: 1000ml; Total: 1000ml. tw5 03:48 IV: 500ml; Total: 1500ml. tw5 Outcome: 03:38 Discharge ordered by . rn 03:49 Discharged to Rehab Facility tw5 03:49 Condition: good 03:49 Discharge instructions given to patient, Instructed on discharge instructions, follow up and referral plans. Demonstrated understanding of instructions, follow-up care. 03:49 Patient left the ED. tw5 Signatures: Dispatcher [employer] EDMark Pace MD MD rn Baxter, Mackenzie mb4 Violetta Moses tw5 Corrections: (The following items were deleted from the chart) 07/19 23:30 23:29 PMHx: None; 07/20 00:17 00:06 UA MICROSCOPIC+U.ZITA.MANUEL drawn and sent. EDMS
[2022-07-20 03:53] VITALS: TEMP 97.1
[2022-07-20 03:54] VITALS: BP 127/58; O2SAT 100
--- NOTE | 2022-07-20 18:36 | RAD REPORT ---
EXAM DESCRIPTION: CT - Abdomen Pelvis Wo Contrast - 07/20/2022 2:14 am CLINICAL HISTORY: Abd pain, vomiting, diarrhea COMPARISON: 04/19/2022 TECHNIQUE: CT of the abdomen and pelvis without IV contrast. Evaluation of the solid organs and vasc ulature is suboptimal due to lack of IV contrast. This exam was performed according to our department al dose-optimization program, which includes automated exposure control, adjustment of the mA and/or kV according to patient size and/or use of iterative reconstruction technique. FINDINGS: Lung Bases: The visualized lung bases are clear. Bones: No acute osseous abnormality. Abdomen: Liver: The liver has normal size and density. Gallbladder: No calcified gallstones. Spleen, Pancreas, and Adrenal Glands: The spleen, pancreas, and adrenal glands are unremarkable. Kidneys: The kidneys have normal size without evidence of hydronephrosis. No obstructing ureteral león culi. Vasculature: The aorta and IVC have normal caliber and position. Stomach: The stomach and duodenum have normal course. Other: No free intraperitoneal air. No free fluid or lymphadenopathy. Pelvis: Bladder: Urinary bladder is unremarkable. Bowel: No dilated loops of large or small bowel. Large amount of stool. Appendix: Normal appendix. Pelvis: Uterus is not enlarged. IMPRESSION: 1. No acute inflammatory or obstructive process identified. 2. Large amount of stool. Electronically signed by: Demetrius Castro 07/20/2022 1:49 AM REINSPECTOR Due to temporary technical issues with the PACS/Fluency reporting system, reports are being signed by the in house radiologists without review as a courtesy to insure prompt reporting. The interpreting radiologist is fully responsible for the content of the report.
== END 2022-07-20 03:49 | disposition home or self-care (01) ==
LOC: ER 23:27
DX: F11.23 Opioid dependence with withdrawal (principal); R19.7 Diarrhea, unspecified; F17.210 Nicotine dependence, cigarettes, uncomplicated; Z20.822 Contact with and (suspected) exposure to COVID-19
CPT/HCPCS: 0240U; 36415; 74176; 80053; 81001; 81003; 81025; 83690; 85025; 99284; J2405; J2550; J7030